=== PATIENT | male | born 1965 | race Caucasian/White ===

== ENCOUNTER 2022-07-15 19:32 | Inpatient (IN) ==
[2022-07-15] MEDS ORDERED: ALBUTEROL 2.5 MG/3 ML NEB RESP TX PRN (22:10)
[2022-07-15] MEDS ORDERED: ONDANSETRON 4 MG/2 ML VIAL IV PRN (22:10)
[2022-07-15 23:02] LABS: Basophils % 0.1 % (0.0-0.8); Hematocrit 44.7 VOL% (42.0-52.0); Hemoglobin 14.9 GM/DL (14.0-18.0); Immature Granulocytes % 0.6 %; Immature Granulocytes Absolute 0.06 #; Lymphocytes # 1.9 10*3/uL (1.4-4.0); Lymphocytes % 18.7 % (21.2-54.2); Mean Corpuscular HGB Conc 33.3 GM/DL (32-36); Mean Corpuscular Volume 107.2 FL (87-102); Mean Platelet Volume 10.3 FL (9.6-12.0); Monocytes # 1.7 10*3/uL (0.11-0.8); Monocytes % 16.4 % (1.7-12.7); Neutrophils % 64.2 % (38.7-73.9); Platelet Count 109 T/CUMM (130-400); Red Blood Count 4.17 MC/CUMM (3.8-5.5); Red Cell Distribution Width 12.4 % (9.3-17.3); White Blood Count 10.3 T/CUMM (4-12)
[2022-07-15 23:12] LABS: INR 1.1; PT Patient Result 11.8 SECS (10.1-12.1)
[2022-07-15] MEDS: PANTOPRAZOLE 40 MG VIAL IV SCH (23:19)
[2022-07-15] MEDS: cefTRIAXone 2,000 MG in SODIUM CHLORIDE 0.9% 100 ML IV SCH (23:19)
[2022-07-15 23:22] LABS: Albumin 3.2 G/DL (3.4-5.0); Bilirubin,Total 0.6 MG/DL (0.20-1.00); Calcium 8.1 MG/DL (8.5-10.1); Osmolality,Calculated 270.4 MOS/KG (273-304); Potassium 4.3 MMOL/L (3.5-5.1); Total Protein 7.6 G/DL (6.4-8.2)
[2022-07-15 23:28] LABS: Band Neutrophils 1 % (0-10); Lymphocytes 28 % (20-55); Platelet Estimate Decreased; Total Cells Counted 100
[2022-07-16] MEDS: THIAMINE INJ 100 MG, FOLIC ACID INJ 1 MG, MULTIVITAMIN INJ 10 ML in SODIUM CHLORIDE 0.9... IV SCH (00:35)
[2022-07-16] MEDS: ALBUTEROL/IPRATROPIUM 3 ML NEB RESP TX SCH ×4 (00:41→19:15)
[2022-07-16 01:35] LABS: ABG Base Excess 3.8 MMOL/L (-2.5-2.5); ABG HCO3 27.7 MMOL/L (20-26); ABG Oxygen Saturation 95.7 % (95-100); ABG PH 7.281 (7.35-7.45); ABG PO2 85.2 MM HG (80-95); ABG TCO2 29.5 MMOL/L (23-27)
[2022-07-16 01:36] LABS: ABG PCO2 71.1 MM HG (35-48)
[2022-07-16] MEDS: ACETAMINOPHEN 325 MG TABLET PO PRN (02:32)
[2022-07-16] MEDS: methylPREDNISolone SOD SUC 40 MG/1 ML VIAL IV SCH ×3 (03:35→19:36)
[2022-07-16 04:52] LABS: Arterial Base Excess iSTAT 3 MMOL/L (-2.5-2.5); Arterial Bicarbonate iSTAT 31.1 MMOL/L (20-26); Arterial O2 Saturation iSTAT 96 % (95-100); Arterial PCO2 iSTAT 62 MM HG (35-48); Arterial PO2 iSTAT 90 MM HG (80-95); Arterial Total CO2 iSTAT 33 MMO/L (23-27); Arterial pH iSTAT 7.309 (7.35-7.45)
[2022-07-16 05:43] LABS: Basophils % 0.2 % (0.0-0.8); Hematocrit 42.5 VOL% (42.0-52.0); Hemoglobin 14.2 GM/DL (14.0-18.0); Immature Granulocytes % 0.4 %; Immature Granulocytes Absolute 0.04 #; Lymphocytes # 1.1 10*3/uL (1.4-4.0); Lymphocytes % 11.6 % (21.2-54.2); Mean Corpuscular HGB Conc 33.4 GM/DL (32-36); Mean Corpuscular Volume 108.4 FL (87-102); Mean Platelet Volume 10.8 FL (9.6-12.0); Monocytes # 1.3 10*3/uL (0.11-0.8); Monocytes % 13.6 % (1.7-12.7); Neutrophils % 74.2 % (38.7-73.9); Platelet Count 101 T/CUMM (130-400); Red Blood Count 3.92 MC/CUMM (3.8-5.5); Red Cell Distribution Width 12.7 % (9.3-17.3); White Blood Count 9.8 T/CUMM (4-12)
[2022-07-16] MEDS: LACTULOSE 20 GM/30 ML UDCUP PO SCH ×3 (06:02→18:44)
[2022-07-16 06:08] LABS: Folate > 24.00 NG/ML (5.38-24.0); Vitamin B12 790 PG/ML (211-911)
[2022-07-16 06:10] LABS: Risk Ratio 3.73; VLDL Cholesterol 44.6 MG/DL
[2022-07-16 06:11] LABS: Albumin 2.8 G/DL (3.4-5.0); Bilirubin,Total 0.6 MG/DL (0.20-1.00); Calcium 8.2 MG/DL (8.5-10.1); Osmolality,Calculated 275.4 MOS/KG (273-304); Potassium 4.5 MMOL/L (3.5-5.1); Thyroid Stimulating Hormone 1.98 uIU/ml (0.358-3.74)
[2022-07-16] MEDS: FOLIC ACID 1 MG TABLET PO SCH (08:53)
[2022-07-16] MEDS: THIAMINE 100 MG TABLET PO SCH (08:53)
[2022-07-16] MEDS: MULTIVITAMIN (CENTRUM) TABLET PO SCH (08:53)
[2022-07-16] MEDS: OSELTAMIVIR 6 MG/ML 60 ML/BOTTLE PO SCH ×2 (08:53→21:32)
[2022-07-16] MEDS: AZITHROMYCIN 250 MG TABLET PO SCH (08:53)
[2022-07-16] MEDS ORDERED: DIAZEPAM 5 MG TABLET PO SCH (09:00)
[2022-07-16] MEDS ORDERED: ENOXAPARIN 40 MG/0.4 ML SYRINGE SUBCUT SCH (09:00)
[2022-07-16] MEDS ORDERED: predniSONE 20 MG TABLET PO SCH (09:00)
[2022-07-16 10:10] LABS: Arterial Base Excess iSTAT 1 MMOL/L (-2.5-2.5); Arterial Bicarbonate iSTAT 28.4 MMOL/L (20-26); Arterial O2 Saturation iSTAT 97 % (95-100); Arterial PCO2 iSTAT 54 MM HG (35-48); Arterial PO2 iSTAT 95 MM HG (80-95); Arterial Total CO2 iSTAT 30 MMO/L (23-27); Arterial pH iSTAT 7.329 (7.35-7.45)
[2022-07-16] MEDS: NICOTINE 21 MG/24 HR PATCH TRANSDERM SCH (10:56)
[2022-07-16] MEDS: MIDAZOLAM DRIP 100 MG/100 ML PREMIX IV PRN ×2 (10:57→18:15)
[2022-07-16] MEDS: PANTOPRAZOLE 40 MG VIAL IV SCH (21:31)
[2022-07-16] MEDS: DIAZEPAM 5 MG TABLET PO PRN (23:23)
[2022-07-17] MEDS: ALBUTEROL/IPRATROPIUM 3 ML NEB RESP TX SCH ×4 (00:15→18:51)
[2022-07-17] MEDS: cefTRIAXone 2,000 MG in SODIUM CHLORIDE 0.9% 100 ML IV SCH ×2 (00:18→22:55)
[2022-07-17] MEDS: LACTULOSE 20 GM/30 ML UDCUP PO SCH ×5 (00:43→23:00)
[2022-07-17] MEDS: THIAMINE INJ 100 MG, FOLIC ACID INJ 1 MG, MULTIVITAMIN INJ 10 ML in SODIUM CHLORIDE 0.9... IV SCH (01:22)
[2022-07-17] MEDS: MIDAZOLAM DRIP 100 MG/100 ML PREMIX IV PRN ×4 (01:35→23:04)
[2022-07-17] MEDS: methylPREDNISolone SOD SUC 40 MG/1 ML VIAL IV SCH ×3 (03:07→20:52)
[2022-07-17 04:13] LABS: Arterial Base Excess iSTAT 1 MMOL/L (-2.5-2.5); Arterial Bicarbonate iSTAT 27.7 MMOL/L (20-26); Arterial O2 Saturation iSTAT 98 % (95-100); Arterial PCO2 iSTAT 49 MM HG (35-48); Arterial PO2 iSTAT 119 MM HG (80-95); Arterial Total CO2 iSTAT 29 MMO/L (23-27); Arterial pH iSTAT 7.359 (7.35-7.45)
[2022-07-17 04:44] LABS: Basophils % 0.1 % (0.0-0.8); Hematocrit 38.6 VOL% (42.0-52.0); Hemoglobin 13.4 GM/DL (14.0-18.0); Immature Granulocytes % 0.4 %; Immature Granulocytes Absolute 0.03 #; Lymphocytes # 0.7 10*3/uL (1.4-4.0); Lymphocytes % 7.7 % (21.2-54.2); Mean Corpuscular HGB Conc 34.7 GM/DL (32-36); Mean Platelet Volume 10.7 FL (9.6-12.0); Monocytes # 0.6 10*3/uL (0.11-0.8); Monocytes % 7.4 % (1.7-12.7); Neutrophils % 84.4 % (38.7-73.9); Platelet Count 103 T/CUMM (130-400); Red Blood Count 3.71 MC/CUMM (3.8-5.5); Red Cell Distribution Width 11.9 % (9.3-17.3); White Blood Count 8.5 T/CUMM (4-12)
[2022-07-17 05:00] LABS: Albumin 2.8 G/DL (3.4-5.0); Bilirubin,Total 0.5 MG/DL (0.20-1.00); Calcium 8.6 MG/DL (8.5-10.1); Total Protein 6.7 G/DL (6.4-8.2)
[2022-07-17 07:32] LABS: Anisocytosis Slight; Macrocytosis 1+; Platelet Estimate Adequate
[2022-07-17] MEDS: DIAZEPAM 5 MG TABLET PO PRN ×2 (07:44→16:30)
[2022-07-17] MEDS: NICOTINE 21 MG/24 HR PATCH TRANSDERM SCH (09:43)
[2022-07-17] MEDS: MULTIVITAMIN (CENTRUM) TABLET PO SCH (09:43)
[2022-07-17] MEDS: THIAMINE 100 MG TABLET PO SCH (09:43)
[2022-07-17] MEDS: FOLIC ACID 1 MG TABLET PO SCH (09:43)
[2022-07-17] MEDS: AZITHROMYCIN 250 MG TABLET PO SCH (09:43)
[2022-07-17] MEDS: fentaNYL INJ 1,250 MCG in SODIUM CHLORIDE 0.9% 225 ML IV PRN (09:45)
[2022-07-17] MEDS: OSELTAMIVIR 6 MG/ML 60 ML/BOTTLE PO SCH ×2 (09:45→20:52)
[2022-07-17 10:08] LABS: Hepatitis B Core IgM Quant 0.07 Index; Hepatitis B Surface Ag Quant < 0.10 Index; Hepatitis B Surface Ag Result Non-Reactive (NonReactive); Hepatitis C Virus Ab Quant 0.05 Index; Hepatitis C Virus Ab Result Non-Reactive (NonReactive)
[2022-07-17] MEDS: INSULIN LISPRO 100 UNIT/ML SUBCUT SCH ×2 (12:50→18:30)
[2022-07-17] MEDS: PROPRANOLOL 40 MG TABLET PER TUBE SCH (20:51)
[2022-07-17] MEDS: PANTOPRAZOLE 40 MG VIAL IV SCH (22:55)
[2022-07-18] MEDS: INSULIN LISPRO 100 UNIT/ML SUBCUT SCH ×4 (00:45→18:25)
[2022-07-18] MEDS: ALBUTEROL/IPRATROPIUM 3 ML NEB RESP TX SCH ×4 (01:11→18:17)
[2022-07-18] MEDS: THIAMINE INJ 100 MG, FOLIC ACID INJ 1 MG, MULTIVITAMIN INJ 10 ML in SODIUM CHLORIDE 0.9... IV SCH (03:05)
[2022-07-18 03:54] LABS: Arterial Base Excess iSTAT 4 MMOL/L (-2.5-2.5); Arterial O2 Saturation iSTAT 98 % (95-100); Arterial PCO2 iSTAT 50 MM HG (35-48); Arterial PO2 iSTAT 100 MM HG (80-95); Arterial Total CO2 iSTAT 31 MMO/L (23-27); Arterial pH iSTAT 7.383 (7.35-7.45)
[2022-07-18] MEDS: LACTULOSE 20 GM/30 ML UDCUP PO SCH ×4 (05:47→23:00)
[2022-07-18 06:42] LABS: Basophils % 0.1 % (0.0-0.8); Hematocrit 38.6 VOL% (42.0-52.0); Hemoglobin 12.7 GM/DL (14.0-18.0); Immature Granulocytes % 0.5 %; Immature Granulocytes Absolute 0.05 #; Lymphocytes # 0.9 10*3/uL (1.4-4.0); Lymphocytes % 9.5 % (21.2-54.2); Mean Corpuscular HGB Conc 32.9 GM/DL (32-36); Mean Corpuscular Volume 106.6 FL (87-102); Mean Platelet Volume 10.8 FL (9.6-12.0); Monocytes # 0.9 10*3/uL (0.11-0.8); Monocytes % 9.4 % (1.7-12.7); Neutrophils % 80.5 % (38.7-73.9); Platelet Count 113 T/CUMM (130-400); Red Blood Count 3.62 MC/CUMM (3.8-5.5); White Blood Count 9.4 T/CUMM (4-12)
[2022-07-18] MEDS: MIDAZOLAM DRIP 100 MG/100 ML PREMIX IV PRN ×3 (06:54→22:42)
[2022-07-18 07:01] LABS: Albumin 2.6 G/DL (3.4-5.0); Bilirubin,Total 0.7 MG/DL (0.20-1.00); Osmolality,Calculated 292.3 MOS/KG (273-304); Potassium 4.4 MMOL/L (3.5-5.1); Total Protein 6.6 G/DL (6.4-8.2)
[2022-07-18] MEDS ORDERED: SODIUM CHLORIDE 0.9% 1,000 ML IV SCH (07:30)
[2022-07-18] MEDS: fentaNYL INJ 1,250 MCG in SODIUM CHLORIDE 0.9% 225 ML IV PRN (07:42)
[2022-07-18 08:42] LABS: Anisocytosis 1+; Macrocytosis 1+; Platelet Estimate Adequate
[2022-07-18] MEDS ORDERED: INSULIN GLARGINE 100 UNIT/ML SUBCUT SCH (09:00)
[2022-07-18] MEDS: methylPREDNISolone SOD SUC 40 MG/1 ML VIAL IV SCH ×2 (09:07→20:34)
[2022-07-18] MEDS: PROPRANOLOL 40 MG TABLET PER TUBE SCH ×2 (09:09→20:34)
[2022-07-18] MEDS: NICOTINE 21 MG/24 HR PATCH TRANSDERM SCH (09:09)
[2022-07-18] MEDS: MULTIVITAMIN (CENTRUM) TABLET PO SCH (09:09)
[2022-07-18] MEDS: FOLIC ACID 1 MG TABLET PO SCH (09:09)
[2022-07-18] MEDS: AZITHROMYCIN 250 MG TABLET PO SCH (09:10)
[2022-07-18] MEDS: THIAMINE 100 MG TABLET PO SCH (09:10)
[2022-07-18] MEDS: OSELTAMIVIR 6 MG/ML 60 ML/BOTTLE PO SCH ×2 (09:13→20:34)
[2022-07-18] MEDS: LACTATED RINGERS 1,000 ML IV SCH ×2 (13:49→19:58)
[2022-07-18] MEDS: PANTOPRAZOLE 40 MG VIAL IV SCH (22:42)
[2022-07-18] MEDS: cefTRIAXone 2,000 MG in SODIUM CHLORIDE 0.9% 100 ML IV SCH (22:42)
[2022-07-19] MEDS ORDERED: ALBUTEROL/IPRATROPIUM 3 ML NEB RESP TX ONE (00:09)
[2022-07-19] MEDS: ALBUTEROL/IPRATROPIUM 3 ML NEB RESP TX SCH ×4 (00:18→18:56)
[2022-07-19] MEDS: INSULIN LISPRO 100 UNIT/ML SUBCUT SCH ×5 (00:20→23:59)
[2022-07-19] MEDS: THIAMINE INJ 100 MG, FOLIC ACID INJ 1 MG, MULTIVITAMIN INJ 10 ML in SODIUM CHLORIDE 0.9... IV SCH (00:21)
[2022-07-19] MEDS: LACTATED RINGERS 1,000 ML IV SCH ×6 (01:50→22:52)
[2022-07-19 03:16] LABS: Arterial Base Excess iSTAT 4 MMOL/L (-2.5-2.5); Arterial O2 Saturation iSTAT 95 % (95-100); Arterial PCO2 iSTAT 55 MM HG (35-48); Arterial PO2 iSTAT 83 MM HG (80-95); Arterial Total CO2 iSTAT 33 MMO/L (23-27); Arterial pH iSTAT 7.357 (7.35-7.45)
[2022-07-19] MEDS: fentaNYL INJ 1,250 MCG in SODIUM CHLORIDE 0.9% 225 ML IV PRN ×2 (03:23→23:46)
[2022-07-19] MEDS: LACTULOSE 20 GM/30 ML UDCUP PO SCH ×4 (05:39→23:59)
[2022-07-19 05:59] LABS: Hematocrit 39.3 VOL% (42.0-52.0); Hemoglobin 12.9 GM/DL (14.0-18.0); Immature Granulocytes % 0.4 %; Immature Granulocytes Absolute 0.03 #; Lymphocytes # 0.9 10*3/uL (1.4-4.0); Lymphocytes % 11.7 % (21.2-54.2); Mean Corpuscular HGB Conc 32.8 GM/DL (32-36); Mean Platelet Volume 10.4 FL (9.6-12.0); Monocytes # 0.6 10*3/uL (0.11-0.8); Monocytes % 7.5 % (1.7-12.7); Neutrophils % 80.4 % (38.7-73.9); Platelet Count 115 T/CUMM (130-400); Red Blood Count 3.64 MC/CUMM (3.8-5.5)
[2022-07-19 06:20] LABS: Albumin 2.5 G/DL (3.4-5.0); Bilirubin,Total 0.6 MG/DL (0.20-1.00); Calcium 8.7 MG/DL (8.5-10.1); Osmolality,Calculated 295.1 MOS/KG (273-304); Potassium 4.7 MMOL/L (3.5-5.1); Total Protein 6.2 G/DL (6.4-8.2)
[2022-07-19] MEDS: MIDAZOLAM DRIP 100 MG/100 ML PREMIX IV PRN ×2 (06:27→15:03)
[2022-07-19] MEDS ORDERED: INSULIN GLARGINE 100 UNIT/ML SUBCUT SCH (09:00)
[2022-07-19] MEDS: PROPRANOLOL 40 MG TABLET PER TUBE SCH ×2 (10:10→21:33)
[2022-07-19] MEDS: MULTIVITAMIN (CENTRUM) TABLET PO SCH (10:10)
[2022-07-19] MEDS: THIAMINE 100 MG TABLET PO SCH (10:10)
[2022-07-19] MEDS: FOLIC ACID 1 MG TABLET PO SCH (10:10)
[2022-07-19] MEDS: methylPREDNISolone SOD SUC 40 MG/1 ML VIAL IV SCH ×2 (10:10→21:33)
[2022-07-19] MEDS: NICOTINE 21 MG/24 HR PATCH TRANSDERM SCH (10:12)
[2022-07-19] MEDS: hydrALAZINE 20 MG/1 ML VIAL IV PRN ×2 (10:14→19:30)
[2022-07-19] MEDS: OSELTAMIVIR 6 MG/ML 60 ML/BOTTLE PO SCH ×2 (11:43→21:33)
[2022-07-19] MEDS: PANTOPRAZOLE 40 MG VIAL IV SCH (22:35)
[2022-07-19] MEDS: cefTRIAXone 2,000 MG in SODIUM CHLORIDE 0.9% 100 ML IV SCH (22:37)
[2022-07-20] MEDS: MIDAZOLAM DRIP 100 MG/100 ML PREMIX IV PRN ×3 (00:18→16:00)
[2022-07-20] MEDS: ALBUTEROL/IPRATROPIUM 3 ML NEB RESP TX SCH ×4 (00:19→19:14)
[2022-07-20 03:22] LABS: Arterial Base Excess iSTAT 5 MMOL/L (-2.5-2.5); Arterial Bicarbonate iSTAT 31.2 MMOL/L (20-26); Arterial O2 Saturation iSTAT 96 % (95-100); Arterial PCO2 iSTAT 53 MM HG (35-48); Arterial PO2 iSTAT 85 MM HG (80-95); Arterial Total CO2 iSTAT 33 MMO/L (23-27); Arterial pH iSTAT 7.376 (7.35-7.45)
[2022-07-20 05:26] LABS: Basophils % 0.1 % (0.0-0.8); Hematocrit 39.2 VOL% (42.0-52.0); Immature Granulocytes % 0.6 %; Immature Granulocytes Absolute 0.05 #; Lymphocytes # 1.2 10*3/uL (1.4-4.0); Lymphocytes % 14.4 % (21.2-54.2); Mean Corpuscular HGB Conc 33.2 GM/DL (32-36); Mean Platelet Volume 10.7 FL (9.6-12.0); Monocytes # 0.6 10*3/uL (0.11-0.8); Monocytes % 6.8 % (1.7-12.7); Neutrophils % 78.1 % (38.7-73.9); Platelet Count 109 T/CUMM (130-400); Red Blood Count 3.63 MC/CUMM (3.8-5.5); Red Cell Distribution Width 11.9 % (9.3-17.3); White Blood Count 8.3 T/CUMM (4-12)
[2022-07-20 06:04] LABS: Albumin 2.4 G/DL (3.4-5.0); Bilirubin,Total 0.6 MG/DL (0.20-1.00); Calcium 8.6 MG/DL (8.5-10.1); Osmolality,Calculated 290.4 MOS/KG (273-304); Potassium 4.5 MMOL/L (3.5-5.1); Total Protein 6.5 G/DL (6.4-8.2)
[2022-07-20] MEDS: LACTATED RINGERS 1,000 ML IV SCH (06:23)
[2022-07-20] MEDS: LACTULOSE 20 GM/30 ML UDCUP PO SCH ×3 (06:24→17:42)
[2022-07-20] MEDS: INSULIN LISPRO 100 UNIT/ML SUBCUT SCH ×3 (06:24→17:45)
[2022-07-20] MEDS ORDERED: FUROSEMIDE 40 MG/4 ML VIAL ONE (07:44)
[2022-07-20] MEDS: THIAMINE 100 MG TABLET PO SCH (08:02)
[2022-07-20] MEDS: NICOTINE 21 MG/24 HR PATCH TRANSDERM SCH (08:02)
[2022-07-20] MEDS: methylPREDNISolone SOD SUC 40 MG/1 ML VIAL IV SCH ×2 (08:02→20:10)
[2022-07-20] MEDS: PROPRANOLOL 40 MG TABLET PER TUBE SCH ×2 (08:02→20:10)
[2022-07-20] MEDS: MULTIVITAMIN (CENTRUM) TABLET PO SCH (08:03)
[2022-07-20] MEDS: hydrALAZINE 20 MG/1 ML VIAL IV PRN ×2 (08:03→18:55)
[2022-07-20] MEDS: FOLIC ACID 1 MG TABLET PO SCH (08:03)
[2022-07-20] MEDS: OSELTAMIVIR 6 MG/ML 60 ML/BOTTLE PO SCH (08:08)
[2022-07-20] MEDS: INSULIN GLARGINE 100 UNIT/ML SUBCUT SCH (08:48)
[2022-07-20] MEDS ORDERED: FUROSEMIDE 40 MG/4 ML VIAL IV ONE (09:00)
[2022-07-20] MEDS: lisinopriL 10 MG TABLET PO SCH (09:58)
[2022-07-20] MEDS: fentaNYL INJ 1,250 MCG in SODIUM CHLORIDE 0.9% 225 ML IV PRN (20:29)
[2022-07-20] MEDS: cefTRIAXone 2,000 MG in SODIUM CHLORIDE 0.9% 100 ML IV SCH (23:09)
[2022-07-20] MEDS: PANTOPRAZOLE 40 MG VIAL IV SCH (23:09)
[2022-07-21] MEDS: LACTULOSE 20 GM/30 ML UDCUP PO SCH ×6 (00:22→23:54)
[2022-07-21] MEDS: INSULIN LISPRO 100 UNIT/ML SUBCUT SCH ×5 (00:23→23:54)
[2022-07-21] MEDS: LACTATED RINGERS 1,000 ML IV SCH ×2 (00:24→20:47)
[2022-07-21] MEDS: ALBUTEROL/IPRATROPIUM 3 ML NEB RESP TX SCH ×4 (00:38→18:57)
[2022-07-21] MEDS: MIDAZOLAM DRIP 100 MG/100 ML PREMIX IV PRN ×2 (01:10→09:07)
[2022-07-21 04:23] LABS: Arterial Base Excess iSTAT 9 MMOL/L (-2.5-2.5); Arterial Bicarbonate iSTAT 36.1 MMOL/L (20-26); Arterial O2 Saturation iSTAT 93 % (95-100); Arterial PCO2 iSTAT 59 MM HG (35-48); Arterial PO2 iSTAT 69 MM HG (80-95); Arterial Total CO2 iSTAT 38 MMO/L (23-27)
[2022-07-21 06:11] LABS: Basophils % 0.1 % (0.0-0.8); Hematocrit 38.8 VOL% (42.0-52.0); Immature Granulocytes % 0.9 %; Immature Granulocytes Absolute 0.08 #; Lymphocytes # 1.1 10*3/uL (1.4-4.0); Lymphocytes % 11.2 % (21.2-54.2); Mean Corpuscular HGB Conc 33.5 GM/DL (32-36); Mean Corpuscular Volume 107.2 FL (87-102); Mean Platelet Volume 10.6 FL (9.6-12.0); Monocytes # 0.9 10*3/uL (0.11-0.8); Monocytes % 9.3 % (1.7-12.7); Neutrophils % 78.5 % (38.7-73.9); Platelet Count 107 T/CUMM (130-400); Red Blood Count 3.62 MC/CUMM (3.8-5.5); Red Cell Distribution Width 11.7 % (9.3-17.3); White Blood Count 9.4 T/CUMM (4-12)
[2022-07-21 06:31] LABS: Osmolality,Calculated 292.3 MOS/KG (273-304); Phosphorous 2.5 MG/DL (2.5-4.9); Potassium 4.3 MMOL/L (3.5-5.1)
[2022-07-21] MEDS: methylPREDNISolone SOD SUC 40 MG/1 ML VIAL IV SCH ×2 (08:15→20:47)
[2022-07-21] MEDS: MULTIVITAMIN (CENTRUM) TABLET PO SCH (08:16)
[2022-07-21] MEDS: NICOTINE 21 MG/24 HR PATCH TRANSDERM SCH (08:17)
[2022-07-21] MEDS: PROPRANOLOL 40 MG TABLET PER TUBE SCH ×2 (08:17→22:52)
[2022-07-21] MEDS: FOLIC ACID 1 MG TABLET PO SCH (08:17)
[2022-07-21] MEDS: lisinopriL 10 MG TABLET PO SCH (08:17)
[2022-07-21] MEDS: INSULIN GLARGINE 100 UNIT/ML SUBCUT SCH (08:18)
[2022-07-21] MEDS: THIAMINE 100 MG TABLET PO SCH (08:18)
[2022-07-21 08:28] LABS: Arterial Base Excess iSTAT 9 MMOL/L (-2.5-2.5); Arterial Bicarbonate iSTAT 35.8 MMOL/L (20-26); Arterial O2 Saturation iSTAT 96 % (95-100); Arterial PCO2 iSTAT 60 MM HG (35-48); Arterial PO2 iSTAT 84 MM HG (80-95); Arterial Total CO2 iSTAT 38 MMO/L (23-27); Arterial pH iSTAT 7.385 (7.35-7.45)
[2022-07-21] MEDS: hydrALAZINE 20 MG/1 ML VIAL IV PRN ×2 (10:04→18:20)
[2022-07-21] MEDS: METOCLOPRAMIDE 10 MG/2 ML VIAL IV SCH ×3 (11:22→23:17)
[2022-07-21] MEDS ORDERED: METOPROLOL TARTRATE 5 MG/5 ML VIAL IV ONE (12:37)
[2022-07-21] MEDS: MORPHINE 2 MG/1 ML SYRINGE IV PRN ×2 (13:57→20:48)
[2022-07-21] MEDS: FUROSEMIDE 40 MG/4 ML VIAL IV SCH (14:00)
[2022-07-21] MEDS ORDERED: LABETALOL 20 MG/4 ML SYRINGE IV ONE (16:20)
[2022-07-21] MEDS: PANTOPRAZOLE 40 MG VIAL IV SCH (22:41)
[2022-07-21] MEDS: cefTRIAXone 2,000 MG in SODIUM CHLORIDE 0.9% 100 ML IV SCH (22:43)
[2022-07-21] MEDS ORDERED: hydrALAZINE 20 MG/1 ML VIAL IV ONE (23:15)
[2022-07-22] MEDS: ALBUTEROL/IPRATROPIUM 3 ML NEB RESP TX SCH ×4 (00:04→18:54)
[2022-07-22] MEDS: MORPHINE 2 MG/1 ML SYRINGE IV PRN (01:13)
[2022-07-22 04:04] LABS: Basophils % 0.1 % (0.0-0.8); Hematocrit 41.1 VOL% (42.0-52.0); Hemoglobin 13.9 GM/DL (14.0-18.0); Immature Granulocytes % 1.2 %; Lymphocytes # 0.9 10*3/uL (1.4-4.0); Lymphocytes % 10.7 % (21.2-54.2); Mean Corpuscular HGB Conc 33.8 GM/DL (32-36); Mean Corpuscular Volume 104.8 FL (87-102); Mean Platelet Volume 10.4 FL (9.6-12.0); Monocytes # 0.7 10*3/uL (0.11-0.8); Monocytes % 7.7 % (1.7-12.7); Neutrophils % 80.3 % (38.7-73.9); Platelet Count 110 T/CUMM (130-400); Red Blood Count 3.92 MC/CUMM (3.8-5.5); Red Cell Distribution Width 11.7 % (9.3-17.3); White Blood Count 8.7 T/CUMM (4-12)
[2022-07-22 04:18] LABS: Osmolality,Calculated 292.3 MOS/KG (273-304); Potassium 3.9 MMOL/L (3.5-5.1)
[2022-07-22] MEDS: hydrALAZINE 20 MG/1 ML VIAL IV PRN (04:35)
[2022-07-22] MEDS: METOCLOPRAMIDE 10 MG/2 ML VIAL IV SCH ×3 (05:12→18:15)
[2022-07-22] MEDS: LACTULOSE 20 GM/30 ML UDCUP PO SCH ×3 (05:12→18:15)
[2022-07-22] MEDS ORDERED: KETOROLAC 30 MG/1 ML VIAL IV ONE (05:30)
[2022-07-22] MEDS: INSULIN LISPRO 100 UNIT/ML SUBCUT SCH ×3 (06:12→18:15)
[2022-07-22 06:25] LABS: Arterial Base Excess iSTAT 11 MMOL/L (-2.5-2.5); Arterial Bicarbonate iSTAT 37.5 MMOL/L (20-26); Arterial O2 Saturation iSTAT 96 % (95-100); Arterial PCO2 iSTAT 54 MM HG (35-48); Arterial PO2 iSTAT 84 MM HG (80-95); Arterial Total CO2 iSTAT 39 MMO/L (23-27)
[2022-07-22] MEDS: lisinopriL 10 MG TABLET PO SCH (08:07)
[2022-07-22] MEDS: PROPRANOLOL 40 MG TABLET PER TUBE SCH ×2 (08:07→20:43)
[2022-07-22] MEDS: MULTIVITAMIN (CENTRUM) TABLET PO SCH (08:09)
[2022-07-22] MEDS: FOLIC ACID 1 MG TABLET PO SCH (08:09)
[2022-07-22] MEDS: THIAMINE 100 MG TABLET PO SCH (08:09)
[2022-07-22] MEDS: methylPREDNISolone SOD SUC 40 MG/1 ML VIAL IV SCH (08:09)
[2022-07-22] MEDS: NICOTINE 21 MG/24 HR PATCH TRANSDERM SCH (08:11)
[2022-07-22] MEDS: FUROSEMIDE 40 MG/4 ML VIAL IV SCH (08:12)
[2022-07-22] MEDS: INSULIN GLARGINE 100 UNIT/ML SUBCUT SCH (09:22)
[2022-07-22 09:29] LABS: Arterial pH iSTAT 7.398 (7.35-7.45)
[2022-07-22] MEDS: ACETAMINOPHEN 325 MG TABLET PO PRN ×2 (12:07→20:44)
[2022-07-22] MEDS: LACTATED RINGERS 1,000 ML IV SCH ×2 (14:50→18:40)
[2022-07-23] MEDS: PANTOPRAZOLE 40 MG VIAL IV SCH (00:22)
[2022-07-23] MEDS: METOCLOPRAMIDE 10 MG/2 ML VIAL IV SCH ×2 (00:22→06:14)
[2022-07-23] MEDS: LACTULOSE 20 GM/30 ML UDCUP PO SCH ×4 (00:23→18:00)
[2022-07-23] MEDS: ALBUTEROL/IPRATROPIUM 3 ML NEB RESP TX SCH ×4 (00:30→19:53)
[2022-07-23] MEDS: INSULIN LISPRO 100 UNIT/ML SUBCUT SCH ×5 (00:39→23:20)
[2022-07-23 05:14] LABS: Basophils % 0.1 % (0.0-0.8); Eosinophils % 0.3 % (0.00-10.9); Hematocrit 40.2 VOL% (42.0-52.0); Hemoglobin 13.6 GM/DL (14.0-18.0); Immature Granulocytes % 0.6 %; Immature Granulocytes Absolute 0.06 #; Lymphocytes # 1.9 10*3/uL (1.4-4.0); Lymphocytes % 20.1 % (21.2-54.2); Mean Corpuscular HGB Conc 33.8 GM/DL (32-36); Mean Corpuscular Volume 102.6 FL (87-102); Mean Platelet Volume 10.4 FL (9.6-12.0); Monocytes # 0.9 10*3/uL (0.11-0.8); Neutrophils % 68.9 % (38.7-73.9); Platelet Count 119 T/CUMM (130-400); Red Blood Count 3.92 MC/CUMM (3.8-5.5); Red Cell Distribution Width 11.6 % (9.3-17.3); White Blood Count 9.3 T/CUMM (4-12)
[2022-07-23 05:31] LABS: Calcium 9.3 MG/DL (8.5-10.1); Potassium 3.3 MMOL/L (3.5-5.1)
[2022-07-23] MEDS: ACETAMINOPHEN 325 MG TABLET PO PRN ×3 (06:24→23:18)
[2022-07-23] MEDS: PROPRANOLOL 40 MG TABLET PER TUBE SCH ×2 (10:10→20:39)
[2022-07-23] MEDS: MULTIVITAMIN (CENTRUM) TABLET PO SCH (10:10)
[2022-07-23] MEDS: FOLIC ACID 1 MG TABLET PO SCH (10:10)
[2022-07-23] MEDS: THIAMINE 100 MG TABLET PO SCH (10:10)
[2022-07-23] MEDS: NICOTINE 21 MG/24 HR PATCH TRANSDERM SCH (10:11)
[2022-07-23] MEDS: INSULIN GLARGINE 100 UNIT/ML SUBCUT SCH (10:11)
[2022-07-23] MEDS: hydrALAZINE 20 MG/1 ML VIAL IV PRN (10:12)
[2022-07-23] MEDS ORDERED: lisinopriL 10 MG TABLET PO SCH (11:00)
[2022-07-23] MEDS: lisinopriL 10 MG TABLET PO SCH (11:14)
[2022-07-23] MEDS ORDERED: POTASSIUM CHLORIDE 20 MEQ TABLET PO ONE (11:26)
[2022-07-23] MEDS: METOCLOPRAMIDE 5 MG TABLET PO SCH ×3 (12:46→20:39)
[2022-07-23] MEDS: guaiFENesin/DM ER 600-30 MG TABLET PO SCH ×2 (12:50→20:39)
[2022-07-23] MEDS: COLESTIPOL 1 GM TABLET PO SCH (23:19)
[2022-07-24] MEDS: ALBUTEROL/IPRATROPIUM 3 ML NEB RESP TX SCH ×4 (00:25→19:37)
[2022-07-24] MEDS: hydrALAZINE 20 MG/1 ML VIAL IV PRN (00:34)
[2022-07-24] MEDS: LACTULOSE 20 GM/30 ML UDCUP PO SCH ×3 (00:34→12:41)
[2022-07-24] MEDS: MORPHINE 2 MG/1 ML SYRINGE IV PRN ×2 (01:50→06:06)
[2022-07-24 05:22] LABS: Basophils % 0.1 % (0.0-0.8); Eosinophils # 0.1 10*3/uL (0.0-0.87); Eosinophils % 0.8 % (0.00-10.9); Hematocrit 40.2 VOL% (42.0-52.0); Hemoglobin 13.8 GM/DL (14.0-18.0); Immature Granulocytes % 0.6 %; Immature Granulocytes Absolute 0.05 #; Lymphocytes # 1.5 10*3/uL (1.4-4.0); Lymphocytes % 17.2 % (21.2-54.2); Mean Corpuscular HGB Conc 34.3 GM/DL (32-36); Mean Corpuscular Volume 102.3 FL (87-102); Mean Platelet Volume 10.6 FL (9.6-12.0); Monocytes # 0.8 10*3/uL (0.11-0.8); Monocytes % 9.3 % (1.7-12.7); Platelet Count 132 T/CUMM (130-400); Red Blood Count 3.93 MC/CUMM (3.8-5.5); Red Cell Distribution Width 11.5 % (9.3-17.3); White Blood Count 8.9 T/CUMM (4-12)
[2022-07-24 05:40] LABS: Calcium 8.9 MG/DL (8.5-10.1); Osmolality,Calculated 280.7 MOS/KG (273-304); Potassium 3.3 MMOL/L (3.5-5.1)
[2022-07-24] MEDS: PANTOPRAZOLE 40 MG TABLET PO SCH (06:09)
[2022-07-24] MEDS: INSULIN LISPRO 100 UNIT/ML SUBCUT SCH ×4 (07:46→22:29)
[2022-07-24] MEDS ORDERED: lisinopriL 10 MG TABLET PO SCH (09:00)
[2022-07-24] MEDS: COLESTIPOL 1 GM TABLET PO SCH (10:40)
[2022-07-24] MEDS: PROPRANOLOL 40 MG TABLET PER TUBE SCH ×2 (10:40→22:44)
[2022-07-24] MEDS: THIAMINE 100 MG TABLET PO SCH (10:40)
[2022-07-24] MEDS: guaiFENesin/DM ER 600-30 MG TABLET PO SCH ×2 (10:40→22:46)
[2022-07-24] MEDS: MULTIVITAMIN (CENTRUM) TABLET PO SCH (10:40)
[2022-07-24] MEDS: FOLIC ACID 1 MG TABLET PO SCH (10:41)
[2022-07-24] MEDS: CHOLECALCIFEROL 1,000 UNIT TABLET PO SCH (10:41)
[2022-07-24] MEDS: METOCLOPRAMIDE 5 MG TABLET PO SCH ×4 (10:41→22:46)
[2022-07-24] MEDS: INSULIN GLARGINE 100 UNIT/ML SUBCUT SCH (10:42)
[2022-07-24] MEDS: NICOTINE 21 MG/24 HR PATCH TRANSDERM SCH (10:42)
[2022-07-24] MEDS: POTASSIUM CHLORIDE 20 MEQ TABLET PO SCH (13:25)
[2022-07-24] MEDS ORDERED: ERGOCALCIFEROL 50,000 UNIT CAPSULE PO ONE (15:04)
[2022-07-24] MEDS: RIFAXIMIN 550 MG TABLET PO SCH ×2 (18:14→22:46)
[2022-07-24] MEDS ORDERED: DOXAZOSIN 1 MG TABLET PO SCH (21:00)
[2022-07-24] MEDS: BUDESONIDE/FORMOTEROL 160-4.5 INHALER 6 GM INH SCH (22:44)
[2022-07-24] MEDS: DIAZEPAM 5 MG TABLET PO PRN (22:45)
[2022-07-25] MEDS: ALBUTEROL/IPRATROPIUM 3 ML NEB RESP TX SCH ×4 (00:59→19:35)
[2022-07-25] MEDS: PANTOPRAZOLE 40 MG TABLET PO SCH (05:42)
[2022-07-25 05:49] LABS: Basophils % 0.2 % (0.0-0.8); Eosinophils # 0.1 10*3/uL (0.0-0.87); Eosinophils % 0.7 % (0.00-10.9); Hemoglobin 12.9 GM/DL (14.0-18.0); Immature Granulocytes % 0.6 %; Immature Granulocytes Absolute 0.07 #; Lymphocytes # 1.6 10*3/uL (1.4-4.0); Lymphocytes % 12.9 % (21.2-54.2); Mean Corpuscular HGB Conc 34.9 GM/DL (32-36); Mean Corpuscular Volume 103.1 FL (87-102); Mean Platelet Volume 10.9 FL (9.6-12.0); Monocytes % 8.5 % (1.7-12.7); Neutrophils % 77.1 % (38.7-73.9); Platelet Count 120 T/CUMM (130-400); Red Blood Count 3.59 MC/CUMM (3.8-5.5); Red Cell Distribution Width 11.4 % (9.3-17.3); White Blood Count 12.2 T/CUMM (4-12)
[2022-07-25 06:09] LABS: Calcium 8.9 MG/DL (8.5-10.1); Osmolality,Calculated 277.8 MOS/KG (273-304); Potassium 3.6 MMOL/L (3.5-5.1)
[2022-07-25] MEDS: INSULIN LISPRO 100 UNIT/ML SUBCUT SCH ×4 (07:44→22:39)
[2022-07-25] MEDS: INSULIN GLARGINE 100 UNIT/ML SUBCUT SCH (08:57)
[2022-07-25] MEDS: POTASSIUM CHLORIDE 20 MEQ TABLET PO SCH (08:59)
[2022-07-25] MEDS: CHOLECALCIFEROL 1,000 UNIT TABLET PO SCH (08:59)
[2022-07-25] MEDS: RIFAXIMIN 550 MG TABLET PO SCH ×2 (08:59→23:40)
[2022-07-25] MEDS: THIAMINE 100 MG TABLET PO SCH (09:00)
[2022-07-25] MEDS: MULTIVITAMIN (CENTRUM) TABLET PO SCH (09:00)
[2022-07-25] MEDS: lisinopriL 20 MG TABLET PO SCH (09:00)
[2022-07-25] MEDS: METOCLOPRAMIDE 5 MG TABLET PO SCH ×2 (09:00→13:06)
[2022-07-25] MEDS: guaiFENesin/DM ER 600-30 MG TABLET PO SCH ×2 (09:00→23:40)
[2022-07-25] MEDS: FOLIC ACID 1 MG TABLET PO SCH (09:00)
[2022-07-25] MEDS: PROPRANOLOL 40 MG TABLET PER TUBE SCH ×2 (09:00→23:41)
[2022-07-25] MEDS: NICOTINE 21 MG/24 HR PATCH TRANSDERM SCH (09:01)
[2022-07-25] MEDS: BUDESONIDE/FORMOTEROL 160-4.5 INHALER 6 GM INH SCH ×2 (09:04→23:43)
[2022-07-25] MEDS ORDERED: ERGOCALCIFEROL 50,000 UNIT CAPSULE PO ONE (11:11)
[2022-07-25] MEDS ORDERED: DOXAZOSIN 1 MG TABLET PO SCH (21:00)
[2022-07-25] MEDS: DIAZEPAM 5 MG TABLET PO PRN (23:41)
[2022-07-26] MEDS: ALBUTEROL/IPRATROPIUM 3 ML NEB RESP TX SCH ×4 (00:40→19:20)
[2022-07-26] MEDS: MORPHINE 2 MG/1 ML SYRINGE IV PRN (04:38)
[2022-07-26 05:50] LABS: Basophils % 0.1 % (0.0-0.8); Eosinophils # 0.2 10*3/uL (0.0-0.87); Eosinophils % 1.6 % (0.00-10.9); Hematocrit 35.1 VOL% (42.0-52.0); Hemoglobin 11.9 GM/DL (14.0-18.0); Immature Granulocytes % 0.5 %; Immature Granulocytes Absolute 0.06 #; Lymphocytes # 1.5 10*3/uL (1.4-4.0); Mean Corpuscular HGB Conc 33.9 GM/DL (32-36); Mean Corpuscular Volume 103.8 FL (87-102); Monocytes # 1.2 10*3/uL (0.11-0.8); Monocytes % 9.6 % (1.7-12.7); Neutrophils % 76.2 % (38.7-73.9); Platelet Count 122 T/CUMM (130-400); Red Blood Count 3.38 MC/CUMM (3.8-5.5); Red Cell Distribution Width 11.5 % (9.3-17.3); White Blood Count 12.5 T/CUMM (4-12)
[2022-07-26 06:13] LABS: Calcium 8.5 MG/DL (8.5-10.1); Osmolality,Calculated 278.7 MOS/KG (273-304); Potassium 3.8 MMOL/L (3.5-5.1)
[2022-07-26] MEDS: PANTOPRAZOLE 40 MG TABLET PO SCH (06:37)
[2022-07-26] MEDS: RIFAXIMIN 550 MG TABLET PO SCH ×2 (09:30→20:59)
[2022-07-26] MEDS: NICOTINE 21 MG/24 HR PATCH TRANSDERM SCH (09:30)
[2022-07-26] MEDS: FOLIC ACID 1 MG TABLET PO SCH (09:30)
[2022-07-26] MEDS: lisinopriL 20 MG TABLET PO SCH (09:30)
[2022-07-26] MEDS: THIAMINE 100 MG TABLET PO SCH (09:31)
[2022-07-26] MEDS: guaiFENesin/DM ER 600-30 MG TABLET PO SCH ×2 (09:31→20:58)
[2022-07-26] MEDS: MULTIVITAMIN (CENTRUM) TABLET PO SCH (09:31)
[2022-07-26] MEDS: CHOLECALCIFEROL 1,000 UNIT TABLET PO SCH (09:31)
[2022-07-26] MEDS: PROPRANOLOL 40 MG TABLET PER TUBE SCH (09:31)
[2022-07-26] MEDS: BUDESONIDE/FORMOTEROL 160-4.5 INHALER 6 GM INH SCH ×2 (09:32→20:59)
[2022-07-26] MEDS: INSULIN LISPRO 100 UNIT/ML SUBCUT SCH ×4 (09:37→20:58)
[2022-07-26] MEDS: INSULIN GLARGINE 100 UNIT/ML SUBCUT SCH (09:38)
[2022-07-26] MEDS ORDERED: KETOROLAC 15 MG/1 ML VIAL IV ONE (11:00)
[2022-07-26] MEDS ORDERED: DOXAZOSIN 1 MG TABLET PO SCH (21:00)
[2022-07-26] MEDS: DIAZEPAM 5 MG TABLET PO PRN (22:43)
[2022-07-27] MEDS: ALBUTEROL/IPRATROPIUM 3 ML NEB RESP TX SCH ×4 (00:14→19:24)
[2022-07-27] MEDS: MORPHINE 2 MG/1 ML SYRINGE IV PRN (03:30)
[2022-07-27 05:16] LABS: Basophils % 0.1 % (0.0-0.8); Eosinophils # 0.3 10*3/uL (0.0-0.87); Eosinophils % 2.1 % (0.00-10.9); Hematocrit 33.8 VOL% (42.0-52.0); Hemoglobin 11.2 GM/DL (14.0-18.0); Immature Granulocytes % 0.5 %; Immature Granulocytes Absolute 0.07 #; Lymphocytes # 1.3 10*3/uL (1.4-4.0); Lymphocytes % 9.2 % (21.2-54.2); Mean Corpuscular HGB Conc 33.1 GM/DL (32-36); Mean Corpuscular Volume 107.3 FL (87-102); Mean Platelet Volume 11.3 FL (9.6-12.0); Monocytes # 1.6 10*3/uL (0.11-0.8); Monocytes % 11.7 % (1.7-12.7); Neutrophils % 76.4 % (38.7-73.9); Platelet Count 123 T/CUMM (130-400); Red Blood Count 3.15 MC/CUMM (3.8-5.5); Red Cell Distribution Width 11.7 % (9.3-17.3); White Blood Count 13.7 T/CUMM (4-12)
[2022-07-27 05:43] LABS: Calcium 8.4 MG/DL (8.5-10.1); Osmolality,Calculated 277.8 MOS/KG (273-304)
[2022-07-27] MEDS: PANTOPRAZOLE 40 MG TABLET PO SCH (06:01)
[2022-07-27] MEDS ORDERED: KETOROLAC 15 MG/1 ML VIAL IV ONE (06:15)
[2022-07-27] MEDS: MULTIVITAMIN (CENTRUM) TABLET PO SCH (08:52)
[2022-07-27] MEDS: guaiFENesin/DM ER 600-30 MG TABLET PO SCH ×2 (08:52→21:45)
[2022-07-27] MEDS: FOLIC ACID 1 MG TABLET PO SCH (08:53)
[2022-07-27] MEDS: NICOTINE 21 MG/24 HR PATCH TRANSDERM SCH (08:54)
[2022-07-27] MEDS: lisinopriL 20 MG TABLET PO SCH (08:54)
[2022-07-27] MEDS: INSULIN GLARGINE 100 UNIT/ML SUBCUT SCH (08:55)
[2022-07-27] MEDS: THIAMINE 100 MG TABLET PO SCH (08:55)
[2022-07-27] MEDS: RIFAXIMIN 550 MG TABLET PO SCH ×2 (08:56→21:45)
[2022-07-27] MEDS: CHOLECALCIFEROL 1,000 UNIT TABLET PO SCH (08:56)
[2022-07-27] MEDS: BUDESONIDE/FORMOTEROL 160-4.5 INHALER 6 GM INH SCH ×2 (08:56→21:46)
[2022-07-27] MEDS ORDERED: ERGOCALCIFEROL 50,000 UNIT CAPSULE PO ONE (09:00)
[2022-07-27] MEDS: INSULIN LISPRO 100 UNIT/ML SUBCUT SCH ×4 (10:12→21:52)
[2022-07-27] MEDS: KETOROLAC 15 MG/1 ML VIAL IV PRN ×2 (15:59→21:45)
[2022-07-27] MEDS: DIAZEPAM 5 MG TABLET PO PRN (21:45)
[2022-07-27] MEDS: DOXAZOSIN 1 MG TABLET PO SCH (21:45)
[2022-07-28] MEDS: ALBUTEROL/IPRATROPIUM 3 ML NEB RESP TX SCH ×4 (00:06→19:20)
[2022-07-28] MEDS: KETOROLAC 15 MG/1 ML VIAL IV PRN ×2 (04:49→14:43)
[2022-07-28 05:38] LABS: Basophils % 0.2 % (0.0-0.8); Eosinophils # 0.2 10*3/uL (0.0-0.87); Eosinophils % 1.9 % (0.00-10.9); Hematocrit 32.5 VOL% (42.0-52.0); Immature Granulocytes % 0.4 %; Immature Granulocytes Absolute 0.05 #; Lymphocytes # 1.4 10*3/uL (1.4-4.0); Lymphocytes % 11.7 % (21.2-54.2); Mean Corpuscular HGB Conc 33.8 GM/DL (32-36); Mean Corpuscular Volume 105.2 FL (87-102); Mean Platelet Volume 11.6 FL (9.6-12.0); Monocytes # 1.4 10*3/uL (0.11-0.8); Neutrophils % 73.8 % (38.7-73.9); Platelet Count 120 T/CUMM (130-400); Red Blood Count 3.09 MC/CUMM (3.8-5.5); Red Cell Distribution Width 11.7 % (9.3-17.3); White Blood Count 11.8 T/CUMM (4-12)
[2022-07-28] MEDS: PANTOPRAZOLE 40 MG TABLET PO SCH (05:41)
[2022-07-28 06:03] LABS: Anisocytosis 1+; Platelet Estimate Adequate
[2022-07-28 06:04] LABS: Macrocytosis Slight
[2022-07-28 06:32] LABS: Calcium 8.6 MG/DL (8.5-10.1); Osmolality,Calculated 277.7 MOS/KG (273-304); Potassium 3.9 MMOL/L (3.5-5.1)
[2022-07-28] MEDS ORDERED: LIDOCAINE 1% 20 ML VIAL MISC INJ ONE (08:00)
[2022-07-28] MEDS: BUDESONIDE/FORMOTEROL 160-4.5 INHALER 6 GM INH SCH ×2 (08:41→20:56)
[2022-07-28] MEDS: INSULIN GLARGINE 100 UNIT/ML SUBCUT SCH (08:42)
[2022-07-28] MEDS: MULTIVITAMIN (CENTRUM) TABLET PO SCH (08:42)
[2022-07-28] MEDS: CHOLECALCIFEROL 1,000 UNIT TABLET PO SCH (08:42)
[2022-07-28] MEDS: guaiFENesin/DM ER 600-30 MG TABLET PO SCH ×2 (08:42→20:51)
[2022-07-28] MEDS: THIAMINE 100 MG TABLET PO SCH (08:42)
[2022-07-28] MEDS: RIFAXIMIN 550 MG TABLET PO SCH ×2 (08:43→20:53)
[2022-07-28] MEDS: lisinopriL 20 MG TABLET PO SCH (08:43)
[2022-07-28] MEDS: FOLIC ACID 1 MG TABLET PO SCH (08:43)
[2022-07-28] MEDS: NICOTINE 21 MG/24 HR PATCH TRANSDERM SCH (08:44)
[2022-07-28] MEDS: INSULIN LISPRO 100 UNIT/ML SUBCUT SCH ×4 (08:44→20:55)
[2022-07-28] MEDS ORDERED: LABETALOL 20 MG/4 ML SYRINGE IV ONE (09:34)
[2022-07-28] MEDS: MORPHINE 2 MG/1 ML SYRINGE IV PRN (10:15)
[2022-07-28] MEDS: carvediloL 12.5 MG TABLET PO SCH ×2 (10:17→20:53)
[2022-07-28 10:57] LABS: Lymphocytes,Synovial Fluid 2 %; Neutrophils,Synovial Fluid 95 %
[2022-07-28 10:58] LABS: Cholesterol Crystals None Seen /LPF
[2022-07-28] MEDS ORDERED: COLCHICINE 0.6 MG CAPSULE PO ONE (20:04)
[2022-07-28] MEDS: predniSONE 20 MG TABLET PO SCH (20:48)
[2022-07-28] MEDS: DOXAZOSIN 1 MG TABLET PO SCH (20:52)
[2022-07-28] MEDS: NAPROXEN 500 MG TABLET PO SCH (20:53)
[2022-07-28] MEDS: DIAZEPAM 5 MG TABLET PO PRN (20:54)
[2022-07-29] MEDS: ALBUTEROL/IPRATROPIUM 3 ML NEB RESP TX SCH ×4 (01:44→19:40)
[2022-07-29 05:08] LABS: Basophils % 0.1 % (0.0-0.8); Eosinophils % 0.2 % (0.00-10.9); Hemoglobin 11.2 GM/DL (14.0-18.0); Immature Granulocytes % 0.6 %; Immature Granulocytes Absolute 0.06 #; Lymphocytes # 0.7 10*3/uL (1.4-4.0); Lymphocytes % 6.4 % (21.2-54.2); Mean Corpuscular HGB Conc 33.9 GM/DL (32-36); Mean Corpuscular Volume 105.8 FL (87-102); Mean Platelet Volume 11.4 FL (9.6-12.0); Monocytes # 0.6 10*3/uL (0.11-0.8); Monocytes % 5.2 % (1.7-12.7); Neutrophils % 87.5 % (38.7-73.9); Platelet Count 143 T/CUMM (130-400); Red Blood Count 3.12 MC/CUMM (3.8-5.5); Red Cell Distribution Width 11.4 % (9.3-17.3); White Blood Count 10.7 T/CUMM (4-12)
[2022-07-29 05:39] LABS: Calcium 9.1 MG/DL (8.5-10.1); Osmolality,Calculated 280.7 MOS/KG (273-304); Potassium 4.8 MMOL/L (3.5-5.1)
[2022-07-29] MEDS: PANTOPRAZOLE 40 MG TABLET PO SCH (06:17)
[2022-07-29] MEDS: BUDESONIDE/FORMOTEROL 160-4.5 INHALER 6 GM INH SCH ×2 (08:42→21:19)
[2022-07-29] MEDS: MULTIVITAMIN (CENTRUM) TABLET PO SCH (08:42)
[2022-07-29] MEDS: NAPROXEN 500 MG TABLET PO SCH ×2 (08:42→21:16)
[2022-07-29] MEDS: lisinopriL 20 MG TABLET PO SCH (08:42)
[2022-07-29] MEDS: FOLIC ACID 1 MG TABLET PO SCH (08:42)
[2022-07-29] MEDS: carvediloL 12.5 MG TABLET PO SCH ×2 (08:43→21:15)
[2022-07-29] MEDS: CHOLECALCIFEROL 1,000 UNIT TABLET PO SCH (08:43)
[2022-07-29] MEDS: guaiFENesin/DM ER 600-30 MG TABLET PO SCH ×2 (08:43→21:14)
[2022-07-29] MEDS: RIFAXIMIN 550 MG TABLET PO SCH ×2 (08:43→21:16)
[2022-07-29] MEDS: THIAMINE 100 MG TABLET PO SCH (08:43)
[2022-07-29] MEDS: predniSONE 20 MG TABLET PO SCH ×2 (08:43→21:15)
[2022-07-29] MEDS: NICOTINE 21 MG/24 HR PATCH TRANSDERM SCH (08:45)
[2022-07-29] MEDS: INSULIN LISPRO 100 UNIT/ML SUBCUT SCH ×4 (08:46→21:18)
[2022-07-29] MEDS: INSULIN GLARGINE 100 UNIT/ML SUBCUT SCH (08:46)
[2022-07-29] MEDS: allopurinoL 300 MG TABLET PO SCH (12:10)
[2022-07-29] MEDS ORDERED: DOXAZOSIN 2 MG TABLET PO ONE (13:00)
[2022-07-29] MEDS ORDERED: DOXAZOSIN 1 MG TABLET PO SCH (21:00)
[2022-07-29] MEDS ORDERED: DOXAZOSIN 4 MG TABLET PO SCH (21:00)
[2022-07-29] MEDS: DIAZEPAM 5 MG TABLET PO PRN ×2 (21:33)
[2022-07-30] MEDS: ALBUTEROL/IPRATROPIUM 3 ML NEB RESP TX SCH ×4 (00:10→19:30)
[2022-07-30 05:04] LABS: Basophils % 0.1 % (0.0-0.8); Eosinophils % 0.1 % (0.00-10.9); Hematocrit 34.4 VOL% (42.0-52.0); Hemoglobin 11.5 GM/DL (14.0-18.0); Immature Granulocytes % 0.8 %; Immature Granulocytes Absolute 0.09 #; Lymphocytes % 7.9 % (21.2-54.2); Mean Corpuscular HGB Conc 33.4 GM/DL (32-36); Mean Corpuscular Volume 104.6 FL (87-102); Mean Platelet Volume 11.5 FL (9.6-12.0); Monocytes # 0.7 10*3/uL (0.11-0.8); Monocytes % 5.9 % (1.7-12.7); Neutrophils % 85.2 % (38.7-73.9); Platelet Count 165 T/CUMM (130-400); Red Blood Count 3.29 MC/CUMM (3.8-5.5); Red Cell Distribution Width 11.4 % (9.3-17.3)
[2022-07-30 05:47] LABS: Calcium 9.5 MG/DL (8.5-10.1); Osmolality,Calculated 276.4 MOS/KG (273-304); Potassium 4.6 MMOL/L (3.5-5.1)
[2022-07-30] MEDS: PANTOPRAZOLE 40 MG TABLET PO SCH (06:00)
[2022-07-30] MEDS: INSULIN LISPRO 100 UNIT/ML SUBCUT SCH ×4 (09:57→20:30)
[2022-07-30] MEDS: INSULIN GLARGINE 100 UNIT/ML SUBCUT SCH (09:58)
[2022-07-30] MEDS: carvediloL 12.5 MG TABLET PO SCH (10:00)
[2022-07-30] MEDS: lisinopriL 20 MG TABLET PO SCH (10:00)
[2022-07-30] MEDS: NAPROXEN 500 MG TABLET PO SCH ×2 (10:00→20:26)
[2022-07-30] MEDS: FOLIC ACID 1 MG TABLET PO SCH (10:00)
[2022-07-30] MEDS: predniSONE 20 MG TABLET PO SCH ×2 (10:00→20:28)
[2022-07-30] MEDS: guaiFENesin/DM ER 600-30 MG TABLET PO SCH ×2 (10:00→20:27)
[2022-07-30] MEDS: MULTIVITAMIN (CENTRUM) TABLET PO SCH (10:00)
[2022-07-30] MEDS: THIAMINE 100 MG TABLET PO SCH (10:00)
[2022-07-30] MEDS: CHOLECALCIFEROL 1,000 UNIT TABLET PO SCH (10:00)
[2022-07-30] MEDS: allopurinoL 300 MG TABLET PO SCH (10:01)
[2022-07-30] MEDS: RIFAXIMIN 550 MG TABLET PO SCH ×2 (10:01→20:28)
[2022-07-30] MEDS: NICOTINE 21 MG/24 HR PATCH TRANSDERM SCH (10:05)
[2022-07-30] MEDS: BUDESONIDE/FORMOTEROL 160-4.5 INHALER 6 GM INH SCH ×2 (10:07→20:41)
[2022-07-30] MEDS: DIAZEPAM 5 MG TABLET PO PRN (20:31)
[2022-07-30] MEDS ORDERED: DILTIAZEM CD 120 MG CAPSULE PO SCH (21:00)
[2022-07-30] MEDS ORDERED: DOXAZOSIN 4 MG TABLET PO SCH (21:00)
[2022-07-31] MEDS: ALBUTEROL/IPRATROPIUM 3 ML NEB RESP TX SCH ×3 (00:20→14:00)
[2022-07-31 05:41] LABS: Basophils % 0.2 % (0.0-0.8); Hematocrit 33.1 VOL% (42.0-52.0); Hemoglobin 11.3 GM/DL (14.0-18.0); Immature Granulocytes % 1.5 %; Immature Granulocytes Absolute 0.17 #; Lymphocytes # 0.8 10*3/uL (1.4-4.0); Lymphocytes % 6.6 % (21.2-54.2); Mean Corpuscular HGB Conc 34.1 GM/DL (32-36); Mean Corpuscular Volume 104.7 FL (87-102); Mean Platelet Volume 11.8 FL (9.6-12.0); Monocytes # 0.7 10*3/uL (0.11-0.8); Monocytes % 5.7 % (1.7-12.7); Platelet Count 160 T/CUMM (130-400); Red Blood Count 3.16 MC/CUMM (3.8-5.5); Red Cell Distribution Width 11.5 % (9.3-17.3); White Blood Count 11.5 T/CUMM (4-12)
[2022-07-31] MEDS: PANTOPRAZOLE 40 MG TABLET PO SCH (06:05)
[2022-07-31 06:17] LABS: Calcium 9.4 MG/DL (8.5-10.1); Osmolality,Calculated 278.2 MOS/KG (273-304); Potassium 4.4 MMOL/L (3.5-5.1)
[2022-07-31] MEDS: INSULIN LISPRO 100 UNIT/ML SUBCUT SCH ×2 (09:51→11:45)
[2022-07-31] MEDS: MULTIVITAMIN (CENTRUM) TABLET PO SCH (09:53)
[2022-07-31] MEDS: CHOLECALCIFEROL 1,000 UNIT TABLET PO SCH (09:53)
[2022-07-31] MEDS: NICOTINE 21 MG/24 HR PATCH TRANSDERM SCH (09:53)
[2022-07-31] MEDS: guaiFENesin/DM ER 600-30 MG TABLET PO SCH (09:54)
[2022-07-31] MEDS: THIAMINE 100 MG TABLET PO SCH (09:54)
[2022-07-31] MEDS: predniSONE 20 MG TABLET PO SCH (09:54)
[2022-07-31] MEDS: allopurinoL 300 MG TABLET PO SCH (09:54)
[2022-07-31] MEDS: RIFAXIMIN 550 MG TABLET PO SCH (09:54)
[2022-07-31] MEDS: lisinopriL 20 MG TABLET PO SCH (09:54)
[2022-07-31] MEDS: NAPROXEN 500 MG TABLET PO SCH (09:55)
[2022-07-31] MEDS: FOLIC ACID 1 MG TABLET PO SCH (09:55)
[2022-07-31] MEDS: BUDESONIDE/FORMOTEROL 160-4.5 INHALER 6 GM INH SCH (09:57)
[2022-07-31] MEDS: INSULIN GLARGINE 100 UNIT/ML SUBCUT SCH (11:02)
[2022-07-31] MEDS ORDERED: NAPROXEN 500 MG TABLET PO PRN (11:34)
[2022-07-31 12:34] VITALS: BP 166/64
[2022-07-31] MEDS ORDERED: glyBURIDE 5 MG TABLET PO SCH (17:00)
[2022-07-31] MEDS ORDERED: buPROPion SR 150 MG TABLET PO SCH (21:00)
[2022-08-01] MEDS ORDERED: LOSARTAN 50 MG TABLET PO SCH (09:00)
[2022-08-01] MEDS ORDERED: COLCHICINE 0.6 MG CAPSULE PO SCH (09:00)
== END 2022-07-31 14:35 | disposition home or self-care (01) | DRG 207 ==
LOC: SUATTDRO 21:52 → N.CC 21:52 → N.2E 07-22 18:21
PROVIDERS: ADMIT Family Medicine; ATTEND Hospitalist